=== PATIENT | female | born 1965 | race Caucasian/White ===

== ENCOUNTER → 2016-08-31 | Outpatient (CLI) | payer BC ==
--- NOTE | 2016-08-31 17:04 | KCIC ---
PROCEDURE Bilateral digital screening mammogram. HISTORY 51-year-old female presents for screening mammography. TECHNIQUE Full field digital craniocaudal and mediolateral oblique standard and breast implant displaced views of both breasts were obtained. Computer-aided detection is applied. COMPARISON 12/15/2012 FINDINGS Breast parenchymal composition: Level C - Heterogeneously dense. There are bilateral breast implants, stable in appearance. There is nodularity within the medial aspect of the right breast on the implant displaced craniocaudal projection, without a correlate on the prior study. There is no suspicious calcification or architectural distortion within either breast. IMPRESSION BI-RADS Category 0: Needs additional imaging. Further evaluation with a spot compression craniocaudal views of the right breast to assess areas of nodularity is recommended. The patient will be contacted to return for additional imaging. This study was interpreted with the benefit of Computerized Aided Detection (CAD). Mammography is not 100% sensitive in detecting breast cancer. Therefore, a self breast exam and a clinical breast exam are very important. A negative mammogram does not negate a clinically suspicious finding and should not result in a delay in biopsying a clinically suspicious abnormality. Electronically signed by: Tiffanie Jain (August 31, 2016 17:02:13)
== END | disposition home or self-care (01) ==
LOC: KCIC MAMMO 15:59
PROVIDERS: ATTEND Family Medicine
DX: Z12.31 Encounter for screening mammogram for malignant neoplasm of breast (principal)
CPT/HCPCS: G0202; 77067

== ENCOUNTER → 2016-09-14 | Outpatient (CLI) | payer BC ==
--- NOTE | 2016-09-14 13:07 | RAD ---
DATE: 09/14/2016 EXAM: DIGITAL DIAGNOSTIC RT HISTORY: Call back for nodules COMPARISON: 08/31/2016 This study was interpreted with the benefit of Computerized Aided Detection (CAD). FINDINGS: The breast parenchyma demonstrates heterogeneously dense breast tissue, category C.. Spot compression views of the right breast in cc view demonstrates spreading of the tissue in the right inner breast likely represents normal breast tissue. IMPRESSION: Benign findings BI-RADS CATEGORY: 2 BENIGN FINDING RECOMMENDED FOLLOW-UP: 12M 12 MONTH FOLLOW-UP PQRS compliance statement: Patient information was entered into a reminder system with a target due date 08/31/2017 for the next mammogram. Mammography is a sensitive method for finding small breast cancers, but it does not detect them all and is not a substitute for careful clinical examination. A negative mammogram does not negate a clinically suspicious finding and should not result in delay in biopsying a clinically suspicious abnormality. "Our facility is accredited by the [employer] Mammography Program."
== END | disposition home or self-care (01) ==
LOC: MAMMO 12:34
PROVIDERS: ATTEND Family Medicine
DX: R92.8 Other abnormal and inconclusive findings on diagnostic imaging of breast (principal)
CPT/HCPCS: G0206; 77065

== ENCOUNTER → 2017-08-12 | Outpatient (CLI) | payer BC | END | disposition home or self-care (01) | LOC: KCIC US 14:45 | DX: R10.84 Generalized abdominal pain (principal) | CPT/HCPCS: 76770 ==